=== PATIENT | male | born 1980 | race Caucasian/White ===

== ENCOUNTER 2019-08-28 03:01 | Emergency (ER) | payer MEDICAID ==
[~2019-08-28] VITALS: Ht 185.4 cm; Wt 77.9 kg
[2019-08-28] MEDS ORDERED: IBUPROFEN 600 MG TABLET ONE (03:39)
[2019-08-28] MEDS ORDERED: ACETAMINOPHEN 500 MG TABLET ONE (03:39)
--- NOTE | 2019-08-28 03:41 | NUR ---
THIS IS A 39Y M THAT CAME IN AFTER FALLING ON SOME STAIRS TONIGHT. PT REPORTS INC SWELLING AND PAIN IN RIGHT WRIST SINCE. PT CONNECTED TO MONITORING, VSS, NADN CALL LIGHT IN REACH
[2019-08-28] MEDS: ACETAMINOPHEN 500 MG TABLET PO ONE ×2 (03:42→04:00)
[2019-08-28] MEDS: IBUPROFEN 600 MG TABLET PO ONE ×2 (03:42→04:00)
--- NOTE | 2019-08-28 03:43 | NUR ---
PT REFUSING MEDS ORDERED, WANTING TO TAKE HOME ASA. MD TO BE UPDATED
--- NOTE | 2019-08-28 03:48 | NUR ---
XRAY AT BEDSIDE
[2019-08-28 03:51] VITALS: BP 113/87
== END 2019-08-28 04:43 | disposition home or self-care (01) ==
LOC: ED 04:33
DX: M25.531 Pain in right wrist (principal); M54.9 Dorsalgia, unspecified; W10.8XXA Fall (on) (from) other stairs and steps, initial encounter; Y93.01 Activity, walking, marching and hiking; Y92.238 Other place in hospital as the place of occurrence of the external cause; Y99.8 Other external cause status
CPT/HCPCS: 29125; 99283